=== PATIENT | male | born 1940 ===

== ENCOUNTER 2018-12-31 12:13 | Outpatient (CLI) | payer MEDICARE | END 2018-12-31 12:14 | disposition home or self-care (01) | LOC: C.LAB 12:13 | DX: E11.9 Type 2 diabetes mellitus without complications (principal); E78.00 Pure hypercholesterolemia, unspecified; I10 Essential (primary) hypertension; Z68.25 Body mass index [BMI] 25.0-25.9, adult; Z71.2 Person consulting for explanation of examination or test findings ==